=== PATIENT | female | born 2000 | race Caucasian/White ===

== ENCOUNTER 2022-10-12 16:59 | Emergency (ER) | payer OTHER ==
[~2022-10-12] VITALS: Ht 167.6 cm; Wt 81.6 kg
[2022-10-12] MEDS ORDERED: HYDROCODON-ACE1 EA10 PO (18:05)
[2022-10-12] MEDS ORDERED: ONDANSETRON HCL4 MG PO (18:05)
[2022-10-12 18:50] VITALS: BP 127/83
== END 2022-10-12 18:52 | disposition home or self-care (01) ==
LOC: ED 16:59
DX: S46.911A Strain of unspecified muscle, fascia and tendon at shoulder and upper arm level, right arm, initial encounter (principal); S66.911A Strain of unspecified muscle, fascia and tendon at wrist and hand level, right hand, initial encounter; V89.2XXA Person injured in unspecified motor-vehicle accident, traffic, initial encounter
CPT/HCPCS: 71045; 73030; 73110; 99284-25; A9270